=== PATIENT | female | born 1950 | race African-American/Black ===

== ENCOUNTER 2016-10-19 17:47 | Emergency (ER) | payer MEDICARE, OTHER ==
--- NOTE | ~2016-10-19 | CR170 ---
[facility] A Service of [facility] & [facility] RADIOLOGY TEXT RESULTS PATIENT: NORBERTO LOPEZ LOCATION: CFTX : 48 UNIT #: [id number] AGE: [address]: Pearl Huff APRN DENTURE CONTOUR WIRE SPECIALIST SEX: F ORDER DR: [id number] [facility] [address] [place], [place] [address] [id number] E MR#: [id number] Acc #: [id number] NAME: NORBERTO LOPEZ : 1950 SEX: F STUDY DATE/TIME: 10/19/2016 20:16 UNIT: [facility] ROOM: STUDY DESCRIPTION: CR Knee 2 Views Rt Attending Physician: Pearl Huff A.P.R.N. Ordering Physician: Pearl Huff A.P.R.N. [facility] REPORT This report is preliminary unless electronic signature is present EXAM Right knee 10/19. INDICATION Knee pain after a fall today. FINDINGS Two views of the right knee were obtained. No fracture or malalignment is seen. There is osteoarthritis predominately in patellofemoral compartment. There is no joint effusion. Atherosclerotic calcifications are present. IMPRESSION Patellofemoral osteoarthritis and atherosclerotic disease. No acute findings in the knee. Dictated by... Kristian Carter Jr., M.D. THIS IS AN ELECTRONICALLY VERIFIED REPORT Kristian Carter Jr., M.D. at 10/20/2016 10:05 AM CHRISTINA/portia TD: 10/20/2016 08:36 JOB #: [id number] MEDICAL IMAGING REPORT Page 1 of 1 COPY
--- NOTE | ~2016-10-19 | CR169 ---
[facility] A Service of [facility] & [facility] RADIOLOGY TEXT RESULTS PATIENT: NORBERTO LOPEZ LOCATION: CFTX : 49 UNIT #: [id number] AGE: [address]: Pearl Huff APRN PUBLICATION EDITOR SEX: F ORDER DR: [id number] [facility] [address] [place], [place] [address] [id number] E MR#: [id number] Acc #: [id number] NAME: NORBERTO LOPEZ : 1950 SEX: F STUDY DATE/TIME: 10/19/2016 20:16 UNIT: [facility] ROOM: STUDY DESCRIPTION: CR Knee 2 Views Lt Attending Physician: Pearl Huff A.P.R.N. Ordering Physician: Pearl Huff A.P.R.N. [facility] RE[facility] This report is preliminary unless electronic signature is present EXAM Left knee, 10/19 INDICATION Knee pain after a fall today. FINDINGS Two views of the left knee were obtained. No fracture or malalignment is seen. There is no joint effusion. There is soft tissue swelling in the prepatellar soft tissues. Atherosclerotic calcifications noted in the soft tissues. IMPRESSION Prepatellar soft tissue swelling. No fracture or malalignment. There is atherosclerotic disease. Dictated by... Kristian Carter Jr., M.D. THIS IS AN ELECTRONICALLY VERIFIED REPORT Kristian Carter Jr., M.D. at 10/20/2016 10:05 AM CHRISTINA/rosi TD: 10/20/2016 08:35 JOB #: [id number] MEDICAL IMAGING REPORT Page 1 of 1 COPY
--- NOTE | ~2016-10-19 | CR211 ---
[facility] A Service of [facility] & [facility] RADIOLOGY TEXT RESULTS PATIENT: NORBERTO LOPEZ LOCATION: CFTX : 48 UNIT #: [id number] AGE: [address]: Pearl Huff APRN NUTRITION COUNSELOR SEX: F ORDER DR: [id number] [facility] [address] [place], [place] [address] [id number] E MR#: [id number] Acc #: [id number] NAME: NORBERTO LOPEZ : 1950 SEX: F STUDY DATE/TIME: 10/19/2016 20:20 UNIT: [facility] ROOM: STUDY DESCRIPTION: CR Ribs Uni 2 View W PA Ch Rt Attending Physician: Pearl Huff A.P.R.N. Ordering Physician: Pearl Huff A.P.R.N. [facility] REPORT This report is preliminary unless electronic signature is present EXAM Chest and right ribs, 10/19 INDICATION Right-side rib pain with painful breathing since a fall today. FINDINGS PA chest x-ray was obtained in addition to a right rib series. No comparison radiographs. Cardiac and mediastinal contours are normal. There is some atelectasis in the bases. No pneumothorax is seen. No rib fractures are seen. IMPRESSION Mild bibasilar atelectasis. No rib fractures are identified, and there is no pneumothorax. Dictated by... Kristian Carter Jr., M.D. THIS IS AN ELECTRONICALLY VERIFIED REPORT Kristian Carter Jr., M.D. at 10/20/2016 10:05 AM CHRISTINA/rosi TD: 10/20/2016 08:36 JOB #: [id number] MEDICAL IMAGING REPORT Page 1 of 1 COPY
[~2016-10-19 17:47] MED LIST: ALKA-SELTZER125 MG PO; B-121000 MC1 PO; BENZONATATE PO; CLARITIN10 M2 PO; FLEXERIL10 MG PO; HYDROCODON-ACE1 EAC7 PO; LEVOTHYROXINE88 MCG PO; MONTELUKAST SOD10 MG PO; NASAL SPRAY30 M2 INH; NEURONTIN100 MG PO; OMEPRAZOLE20 M2 PO; VITAMIN D35000 UNIT PO; XALATAN OU
== END 2016-10-19 21:52 | disposition home or self-care (01) ==
LOC: CFTX 17:47 → CED 17:47 → CFTX 19:38
DX: S80.02XA Contusion of left knee, initial encounter (principal); S20.211A Contusion of right front wall of thorax, initial encounter; S80.211A Abrasion, right knee, initial encounter; W01.0XXA Fall on same level from slipping, tripping and stumbling without subsequent striking against object, initial encounter; Y92.410 Unspecified street and highway as the place of occurrence of the external cause
CPT/HCPCS: 29530; 71101; 73560; 99284